=== PATIENT | male | born 1990 | race African-American/Black ===

== ENCOUNTER 2016-12-02 21:29 | Emergency (ER) | payer MEDICAID ==
[~2016-12-02] VITALS: Ht 157.5 cm; Wt 50.0 kg
[2016-12-03 03:50] VITALS: BP 124/84
== END 2016-12-03 04:24 | disposition home or self-care (01) ==
LOC: ER 21:30
DX: F17.210 Nicotine dependence, cigarettes, uncomplicated (principal); S05.91XA Unspecified injury of right eye and orbit, initial encounter; X58.XXXA Exposure to other specified factors, initial encounter; Y93.89 Activity, other specified; Y92.9 Unspecified place or not applicable; Y99.8 Other external cause status
CPT/HCPCS: 99283; Z7610

== ENCOUNTER 2017-09-23 08:51 | Emergency (ER) | payer MEDICAID ==
[~2017-09-23] VITALS: Ht 157.5 cm; Wt 60.0 kg
[2017-09-23] MEDS ORDERED: IBUPROFEN 600MG TABLET PO ONE (10:00)
[2017-09-23] MEDS ORDERED: TETANUS, DIPHTHERIA, PERTUSSIS VAC/PF 0.5ML (>7YR OLD) IM ONE (10:00)
[2017-09-23] MEDS ORDERED: BACITRACIN ZINC OINT UDPKT TOP ONE (10:00)
[2017-09-23 13:15] VITALS: BP 122/74
== END 2017-09-23 13:50 | disposition home or self-care (01) ==
LOC: ER 08:51
DX: S61.212A Laceration without foreign body of right middle finger without damage to nail, initial encounter (principal); F12.10 Cannabis abuse, uncomplicated; F17.200 Nicotine dependence, unspecified, uncomplicated; W25.XXXA Contact with sharp glass, initial encounter; Y93.G1 Activity, food preparation and clean up; Y99.8 Other external cause status; Y92.89 Other specified places as the place of occurrence of the external cause
CPT/HCPCS: 90471; 90715; 99283

== ENCOUNTER 2017-11-21 18:30 | Emergency (ER) | payer MEDICAID ==
[~2017-11-21] VITALS: Ht 157.5 cm; Wt 56.0 kg
[2017-11-21] MEDS ORDERED: BACITRACIN ZINC OINT UDPKT TOP ONE (19:00)
[2017-11-21] MEDS ORDERED: LIDOCAINE HCL 1% 20ML VIAL (Pyxis) INJ MC ONE (19:00)
[2017-11-21] MEDS ORDERED: LIDOCAINE HCL/PF 1% 10 MG/ML 30ML VIAL IJ SCH (20:55)
[2017-11-21 22:48] VITALS: BP 108/56
== END 2017-11-21 22:48 | disposition home or self-care (01) ==
LOC: ER 22:04
DX: S61.011A Laceration without foreign body of right thumb without damage to nail, initial encounter (principal); F17.200 Nicotine dependence, unspecified, uncomplicated; F12.10 Cannabis abuse, uncomplicated; W26.0XXA Contact with knife, initial encounter; Y93.89 Activity, other specified; Y92.018 Other place in single-family (private) house as the place of occurrence of the external cause
CPT/HCPCS: 12001; 99283; J3490; Z7610

== ENCOUNTER 2019-07-24 22:55 | Emergency (ER) | payer MEDICAID ==
[~2019-07-24] VITALS: Ht 160 cm; Wt 61.0 kg
[2019-07-25 00:15] LABS: HEMATOCRIT. 45.5 % (42.0-52.0); HEMOGLOBIN. 15.5 g/dL (14.0-18.0); MEAN CORPUSCULAR VOLUME 91.3 fL (80.0-94.0); MEAN PLATELET VOLUME 9.8 fl (7.4-10.4); PLATELET 209 x1000/uL (130-400); RED BLOOD CELL COUNT 4.99 mill/uL (4.7-6.1); RED CELL DISTRIBUTION WIDTH 13.6 % (11.6-14.6)
[2019-07-25 00:19] LABS: CHLORIDE 104 mEq/L (98-107)
[2019-07-25 00:20] LABS: PARTIAL THROMBOPLASTIN TIME 25.3 sec (23.4-31.0); PROTHROMBIN TIME 10.3 sec (9.6-11.0)
[2019-07-25 00:22] LABS: ETHANOL BLOOD 48 mg/dL
[2019-07-25 01:40] LABS: *AMPHETAMINES SCREEN URINE PRESUMTIVE POSITIVE (NEGATIVE); *BARBITURATES SCREEN URINE NEGATIVE (NEGATIVE); *BENZODIAZEPINES SCREEN URINE NEGATIVE (NEGATIVE); *COCAINE SCREEN URINE NEGATIVE (NEGATIVE)
[2019-07-25 01:41] LABS: CANNABINOID URINE SCREEN NEGATIVE (NEGATIVE); METHADONE URINE SCREEN NEGATIVE (NEGATIVE); OPIATES URINE SCREEN NEGATIVE (NEGATIVE); PHENCYCLIDINE URINE SCREEN NEGATIVE (NEGATIVE)
[2019-07-25] MEDS ORDERED: LORAZEPAM 2MG/ML CPJ IV ONE (03:00)
[2019-07-25] MEDS ORDERED: IOHEXOL-300 100 ML BOTTLE ONE (03:10)
[2019-07-25] MEDS ORDERED: IOHEXOL-350 100 ML BOTTLE ONE (03:24)
[2019-07-25] MEDS ORDERED: SODIUM CHLORIDE 0.9% 1,000 ML IV ONE ×2 (03:45)
[2019-07-25 03:51] VITALS: BP 145/87
[2019-07-25 04:18] LABS: PLATELET ESTIMATE NORMAL
== END 2019-07-25 04:08 | disposition left against medical advice (07) ==
LOC: ER 22:55
DX: R07.89 Other chest pain (principal); F12.10 Cannabis abuse, uncomplicated; R00.0 Tachycardia, unspecified; F17.290 Nicotine dependence, other tobacco product, uncomplicated; Z90.89 Acquired absence of other organs
CPT/HCPCS: 36415; 71275; 80053; 80305; 80320; 83605; 83880; 84443; 84484; 85025; 85610; 85730; 93005; 99284; 99406; J7030; Q9967; Z7610; J2060; G0480